=== PATIENT | male | born 1935 | race Caucasian/White ===

== ENCOUNTER 2016-03-24 20:21 | Emergency (ER) | payer MEDICARE, OTHER ==
[~2016-03-24] VITALS: Ht 177.8 cm; Wt 77.0 kg
[~2016-03-24 20:21] MED LIST: ATOR10 PO; GLUCTAB PO; LISI-360 PO; PRAD75CA PO
[2016-03-24 20:25] VITALS: BP 193/99; PULSE 68; RESP 16; TEMP 97.8; O2SAT 97
[2016-03-24 20:30] VITALS: BP 174/93; PULSE 58; RESP 18; O2SAT 96
[2016-03-24] MEDS ORDERED: TRAM50TA PO (20:39)
[2016-03-24] MEDS ORDERED: METF500T PO (20:39)
[2016-03-24] MEDS ORDERED: MULT1TAB85 PO (20:39)
[2016-03-24] MEDS ORDERED: PRAD150C PO (20:39)
[2016-03-24] MEDS ORDERED: LACTCAP8 PO (20:39)
[2016-03-24] MEDS ORDERED: FISHCAP4 PO (20:39)
[2016-03-24] MEDS ORDERED: PROP20TA3 PO (20:39)
[2016-03-24] MEDS ORDERED: LISI10TA3 PO (20:39)
[2016-03-24 20:44] VITALS: BP 166/94; PULSE 64; RESP 16; O2SAT 98
[2016-03-24] MEDS ORDERED: SODIUM CHLORIDE 0.9% FLUSH 5 ML FLUSH IVF PRN (20:45)
[2016-03-24 20:47] LABS: AUTOMATED NEUTROPHIL # 3.6 TH/MM3 (1.8-7.7); BASOPHIL # 0.1 TH/MM3 (0-0.2); BASOPHIL % 1.2 % (0.0-2.0); EOSINOPHIL # 0.2 TH/MM3 (0-0.4); HEMATOCRIT 40.7 % (39.0-51.0); HEMO FLAGS DIFF FINAL; LYMPH % 26.4 % (9.0-44.0); LYMPHOCYTE # 1.6 TH/MM3 (1.0-4.8); MEAN CELL VOLUME 89.9 FL (80.0-100.0); MEAN CORPUSCULAR HEMOGLOBIN 30.3 PG (27.0-34.0); MEAN CORPUSCULAR HGB CONC 33.7 % (32.0-36.0); NEUT % 57.4 % (16.0-70.0); PLATELET COUNT 150 TH/MM3 (150-450); RED BLOOD COUNT 4.53 MIL/MM3 (4.50-5.90); RED CELL DISTRIBUTION WIDTH 13.7 % (11.6-17.2); WHITE BLOOD COUNT 6.2 TH/MM3 (4.0-11.0)
[2016-03-24 20:55] LABS: CHLORIDE 104 MEQ/L (98-107); POTASSIUM 4.1 MEQ/L (3.5-5.1); SODIUM (NA) 143 MEQ/L (136-145)
[2016-03-24 20:59] LABS: ANION GAP 7 MEQ/L (5-15); BICARBONATE 32.5 MEQ/L (21.0-32.0); BLOOD UREA NITROGEN 15 MG/DL (7-18)
--- NOTE | 2016-03-24 20:59 | PD ---
HPI Chief Complaint: Neuro Symptoms/ Deficits Time Seen by Provider: 20:37 Travel History International Travel<30 days: No Contact w/Intl Traveler<30days: No Traveled to known affect area: No History of Present Illness HPI The patient is a 80-year-old male presents to the emergency department via private vehicle for confusion. The patient apparently was working on a crossword earlier today and approximate 7:30 PM, forgot he was working on the crossword. The patient's noticed that the patient was confused about working on a crossword puzzle and was concerned he was having a TIA. The states the patient had a history of confusion in the past with dizziness and was diagnosed with a TIA, however, states the workup was negative at that time. The patient did have an assortment of outpatient tests and was supposed to follow-up with a neurologist, however, did not ever follow-up with a neurologist. The does note that the patient's memory has been decreasing over the last several months, he occasionally will be confused about carotid Dominga thinners and simple task. The states the patient had no apparent weakness on the left or right side, had no difficulty with speech, simply had confusion about a crossword puzzle that was performed earlier in the day. The patient does have a history of intermittent atrial fibrillation for which he takes Pradaxa. PFSH Past Medical History Arthritis: Yes Atrial Fibrillation: Yes Autoimmune Disease: No Heart Rhythm Problems: Yes ( AFIB 2006) Cancer: No Cardiovascular Problems: Yes (HTN) High Cholesterol: Yes Chemotherapy: No Cerebrovascular Accident: Yes (TIA) Diabetes: Yes (METFORMIN ) Diminished Hearing: No Endocrine: Yes Genitourinary: Yes (BPH) Hypertension: Yes Immune Disorder: No Musculoskeletal: Yes Neurologic: Yes (STROKE LIKE S/S TODAY) Psychiatric: No Reproductive: No Respiratory: No Radiation Therapy: No Past Surgical History Cardiac Surgery: Yes (ABLATION) Genitourinary Surgery: Yes (TURP) Joint Replacement: Yes (RIGHT KNEE) Other Surgery: Yes (NOSE SURGERY 2008 2ND TO TRAUMA) Social History Alcohol Use: Yes (OCC) Tobacco Use: No Substance Use: No Allergies-Medications (Allergen,Severity, Reaction): Coded Allergies: Caffeine (Verified Allergy, Severe, Atrial Fibrillation, 03/24/16) Ephedrine (Verified Allergy, Severe, Atrial Fibrillation, 03/24/16) Reported Meds & Prescriptions Reported Meds & Active Scripts Active Reported Tramadol (Tramadol HCl) 50 Mg Tab 50 Mg PO Q4H PRN Multivitamin Men (Multiple Vitamins W/ Minerals) 1 Tab Tab 1 Tab PO DAILY Fish Oil + D3 (Fish Oil-Cholecalciferol) 1,200-1,000 Mg-Unit Cap 1 Cap PO DAILY Probiotic (Lactobacillus Acidophilus) 1 Cap Cap 2 Cap PO TIDAC Propranolol (Propranolol HCl) 20 Mg Tab 20 Mg PO Q12HR Pradaxa (Dabigatran) 150 Mg Cap 150 Mg PO BID Lisinopril 10 Mg Tab 10 Mg PO DAILY Metformin (Metformin HCl) 500 Mg Tab 500 Mg PO BIDPC With meals Review of Systems Except as stated in HPI: all other systems reviewed are Neg General / Constitutional: No: Fever Eyes: No: Visual changes HENT: No: Headaches, Lightheadedness Cardiovascular: No: Chest Pain or Discomfort Respiratory: No: Shortness of Breath Gastrointestinal: No: Nausea, Vomiting Musculoskeletal: No: Weakness Neurologic: Positive: Change in Mentation, No: Weakness, Dizziness, Headache, Slurred Speech, Paresthesia, Sensory Disturbance Physical Exam Narrative GENERAL: Awake, alert, pleasant 80-year-old male who appears his stated age is in no acute respiratory distress. SKIN: Warm and dry. HEAD: Atraumatic. Normocephalic. EYES: Pupils equal and round. Pupils are 3 mm bilateral and reactive. ENT: No nasal bleeding or discharge. Mucous membranes pink and moist. NECK: Trachea midline. No JVD. CARDIOVASCULAR: Regular rate and rhythm. No murmur appreciated. Heart rate in the 70s. RESPIRATORY: No accessory muscle use. Clear to auscultation. Breath sounds equal bilaterally. GASTROINTESTINAL: Abdomen soft, non-tender, nondistended. No rebound tenderness. MUSCULOSKELETAL: No obvious deformities. No clubbing. No cyanosis. No edema. NEUROLOGICAL: Awake and alert. No obvious cranial nerve deficits. Motor grossly within normal limits. Normal speech. No dysarthria noted. EOMs are intact. Patient is able to see fingers at a distance of 2 feet without difficulty. Visual kenyon are symmetric bilaterally. Sensation is symmetric bilaterally in the face, arms, and legs. No drift of the upper or lower extremities. Finger to nose is normal. Ahlr-af-thto is normal. The patient is oriented to person and place, however, did not know the current year, president of [facility], or his wedding date. The patient was able to tell me his date of . PSYCHIATRIC: Appropriate mood and affect; insight and judgment normal. Data Data Last Documented VS Vital Signs Date Time Temp Pulse Resp B/P Pulse Ox O2 Delivery O2 Flow Rate FiO2 03/24/16 21:42 55 18 174/90 96 Room Air 03/24/16 20:25 97.8 Orders Electrocardiogram (03/24/16 20:37) Complete Blood Count With Diff (03/24/16 20:37) Comprehensive Metabolic Panel (03/24/16 20:37) Creatine Kinase (Cpk) (03/24/16 20:37) Prothrombin Time / Inr (Pt) (03/24/16 20:37) Act Partial Throm Time (Ptt) (03/24/16 20:37) Troponin I (03/24/16 20:37) Thyroid Stimulating Hormone (03/24/16 20:37) Urinalysis - C+S If Indicated (03/24/16 20:37) Chest, Single Ap (03/24/16 20:37) Ct Brain W/O Iv Contrast(Rout) (03/24/16 20:37) Blood Glucose (03/24/16 20:37) Ecg Monitoring (03/24/16 20:37) Iv Access Insert/Monitor (03/24/16 20:37) Oximetry (03/24/16 20:37) Sodium Chloride 0.9% Flush (Ns Flush) (03/24/16 20:45) Alcohol (Ethanol) (03/24/16 20:37) Ondansetron Inj (Zofran Inj) (03/24/16 21:30) Aspirin (Aspirin) (03/24/16 22:15) Labs Laboratory Tests Test 03/24/16 03/24/16 20:30 21:20 White Blood Count 6.2 TH/MM3 Red Blood Count 4.53 MIL/MM3 Hemoglobin 13.7 GM/DL Hematocrit 40.7 % Mean Corpuscular Volume 89.9 FL Mean Corpuscular Hemoglobin 30.3 PG Mean Corpuscular Hemoglobin 33.7 % Concent Red Cell Distribution Width 13.7 % Platelet Count 150 TH/MM3 Mean Platelet Volume 9.3 FL Neutrophils (%) (Auto) 57.4 % Lymphocytes (%) (Auto) 26.4 % Monocytes (%) (Auto) 11.0 % Eosinophils (%) (Auto) 4.0 % Basophils (%) (Auto) 1.2 % Neutrophils # (Auto) 3.6 TH/MM3 Lymphocytes # (Auto) 1.6 TH/MM3 Monocytes # (Auto) 0.7 TH/MM3 Eosinophils # (Auto) 0.2 TH/MM3 Basophils # (Auto) 0.1 TH/MM3 CBC Comment DIFF FINAL Differential Comment Sodium Level 143 MEQ/L Potassium Level 4.1 MEQ/L Chloride Level 104 MEQ/L Carbon Dioxide Level 32.5 MEQ/L Anion Gap 7 MEQ/L Blood Urea Nitrogen 15 MG/DL Creatinine 0.99 MG/DL Estimat Glomerular Filtration 73 ML/MIN Rate Random Glucose 124 MG/DL Calcium Level 8.8 MG/DL Total Bilirubin 0.6 MG/DL Aspartate Amino Transf 13 U/L (AST/SGOT) Alanine Aminotransferase 15 U/L (ALT/SGPT) Alkaline Phosphatase 63 U/L Total Creatine Kinase 60 U/L Troponin I LESS THAN 0.02 NG/ML Total Protein 6.5 GM/DL Albumin 3.6 GM/DL Thyroid Stimulating Hormone 2.190 uIU/ML 3rd Gen Ethyl Alcohol Level LESS THAN 3 MG/DL Prothrombin Time 11.6 SEC Prothromb Time International 1.0 RATIO Ratio Activated Partial 31.0 SEC Thromboplast Time Urine Color YELLOW Urine Turbidity CLEAR Urine pH 7.5 Urine Specific [place] 1.011 Urine Protein NEG mg/dL Urine Glucose (UA) NEG mg/dL Urine Ketones NEG mg/dL Urine Occult Blood NEG Urine Nitrite NEG Urine Bilirubin NEG Urine Leukocyte Esterase NEG Urine RBC 0-2 /hpf Urine WBC 0-2 /hpf Urine Squamous Epithelial 0-5 /hpf Cells Urine Bacteria NONE /hpf Microscopic Urinalysis Comment CULT NOT INDICATED MDM Medical Decision Making Medical Screen Exam Complete: Yes Emergency Medical Condition: Yes Medical Record Reviewed: Yes Interpretation(s) EKG reveals normal sinus rhythm with a rate of 70. Nonspecific ST junctional depression. Last Impressions Head CT 03/24/162036 Signed Impressions: Service Date/Time: Thursday, March 24, 2016 21:01 - CONCLUSION: No acute disease. Neil Redmond MD Laboratory Tests Test 03/24/16 03/24/16 20:30 21:20 White Blood Count 6.2 TH/MM3 Red Blood Count 4.53 MIL/MM3 Hemoglobin 13.7 GM/DL Hematocrit 40.7 % Mean Corpuscular Volume 89.9 FL Mean Corpuscular Hemoglobin 30.3 PG Mean Corpuscular Hemoglobin 33.7 % Concent Red Cell Distribution Width 13.7 % Platelet Count 150 TH/MM3 Mean Platelet Volume 9.3 FL Neutrophils (%) (Auto) 57.4 % Lymphocytes (%) (Auto) 26.4 % Monocytes (%) (Auto) 11.0 % Eosinophils (%) (Auto) 4.0 % Basophils (%) (Auto) 1.2 % Neutrophils # (Auto) 3.6 TH/MM3 Lymphocytes # (Auto) 1.6 TH/MM3 Monocytes # (Auto) 0.7 TH/MM3 Eosinophils # (Auto) 0.2 TH/MM3 Basophils # (Auto) 0.1 TH/MM3 CBC Comment DIFF FINAL Differential Comment Sodium Level 143 MEQ/L Potassium Level 4.1 MEQ/L Chloride Level 104 MEQ/L Carbon Dioxide Level 32.5 MEQ/L Anion Gap 7 MEQ/L Blood Urea Nitrogen 15 MG/DL Creatinine 0.99 MG/DL Estimat Glomerular Filtration 73 ML/MIN Rate Random Glucose 124 MG/DL Calcium Level 8.8 MG/DL Total Bilirubin 0.6 MG/DL Aspartate Amino Transf 13 U/L (AST/SGOT) Alanine Aminotransferase 15 U/L (ALT/SGPT) Alkaline Phosphatase 63 U/L Total Creatine Kinase 60 U/L Troponin I LESS THAN 0.02 NG/ML Total Protein 6.5 GM/DL Albumin 3.6 GM/DL Thyroid Stimulating Hormone 2.190 uIU/ML 3rd Gen Ethyl Alcohol Level LESS THAN 3 MG/DL Prothrombin Time 11.6 SEC Prothromb Time International 1.0 RATIO Ratio Activated Partial 31.0 SEC Thromboplast Time Urine Color YELLOW Urine Turbidity CLEAR Urine pH 7.5 Urine Specific [place] 1.011 Urine Protein NEG mg/dL Urine Glucose (UA) NEG mg/dL Urine Ketones NEG mg/dL Urine Occult Blood NEG Urine Nitrite NEG Urine Bilirubin NEG Urine Leukocyte Esterase NEG Urine RBC 0-2 /hpf Urine WBC 0-2 /hpf Urine Squamous Epithelial 0-5 /hpf Cells Urine Bacteria NONE /hpf Microscopic Urinalysis Comment CULT NOT INDICATED Chest x-rays unremarkable. Differential Diagnosis Differential diagnosis includes TIA, CVA, subdural hemorrhage, delirium, dementia, hyponatremia, UTI, pneumonia, metabolic encephalopathy. Narrative Course IV was established, labs were drawn and sent, and the patient was placed on cardiac telemetry monitoring and continuous pulse oximetry monitoring. EKG was ordered and interpreted. The patient's stroke scale was 0, therefore, no stroke scale was called. The patient appears to have short term memory problems , which appear to been going on for several months according to the . CT the brain was ordered to rule out subdural hemorrhage. TSH was sent to lab. TSH was normal. CT of the brain was negative. Chest x-rays unremarkable. UA is negative. Sodium is normal. No obvious course of patient's delirium. The patient appears to have dementia with progressing symptoms. I reviewed the patient's EMR from 2014 red MRA, MRI, ultrasound of carotids, and CT the brain performed. The patient was evaluated by the neurologist at that time, Dr. Brooks, however, did not follow-up as an outpatient according to the . The patient most likely has acute delirium on top of dementia with progressing symptoms, he may benefit from outpatient follow-up with neurology. The is comfortable with this plan of care and disposition. I advised patient not to drive or go places without a family member present and not to cocaine at home alone. Diagnosis Primary Impression: Delirium Additional Impression: Dementia Qualified Code: F03.90 - Dementia without behavioral disturbance, unspecified dementia type Referrals: Angus Brooks MD call for appointment Patient Instructions: General Instructions Additional Instructions: Follow-up with neurology, Dr. Brooks on an outpatient basis. Please provide the patient a copy of the CT results and lab results at discharge. Return if symptoms worsen or progress. Med/Other Pt SpecificInfo: No Change to Meds Disposition: 01 DISCHARGE HOME Condition: Stable Sunil Becerra MD Mar 24, 2016 20:59
[2016-03-24 21:02] LABS: ALT (GPT) 15 U/L (12-78); AST (GOT) 13 U/L (15-37); GLOMERULAR FILTRATION RATE 73 ML/MIN (>89)
[2016-03-24 21:03] LABS: TOTAL BILIRUBIN ADULT 0.6 MG/DL (0.2-1.0)
[2016-03-24 21:05] LABS: ALKALINE PHOSPHATASE 63 U/L (45-117); CREATINE KINASE 60 U/L (39-308)
--- NOTE | 2016-03-24 21:08 | RADHPO ---
EXAM DATE/TIME: 03/24/2016 20:53 [facility] COMPARISON: CHEST SINGLE AP, October 06, 2014, 16:28. INDICATIONS : Syncopal episode today. Possible TIA. MEDICAL HISTORY : Hypertension. Hypercholesterolemia. TIA SURGICAL HISTORY : Ablation. ENCOUNTER: Initial ACUITY: 1 day PAIN SCORE: Non-responsive. LOCATION: Bilateral chest FINDINGS: The heart is normal. There is some widening of the aorta. The lungs are grossly clear. No effusion is seen. The bony structures are grossly intact. CONCLUSION: No acute abnormality is seen. Neil Redmond MD on March 24, 2016 at 21:05 Board Certified Radiologist. This report was verified electronically.
[2016-03-24] MEDS ORDERED: ONDANSETRON HCL 4 MG/2 ML VIAL IV PUSH ONE (21:30)
[2016-03-24 21:35] LABS: BLOOD, URINE NEG (NEG); GLUCOSE,URINE NEG (NEG); KETONE, URINE NEG (NEG); NITRITE,URINE NEG (NEG); PH, URINE 7.5 (5.0-8.5)
--- NOTE | 2016-03-24 21:37 | RADHPO ---
EXAM DATE/TIME: 03/24/2016 21:01 [facility] COMPARISON: CT BRAIN W/O CONTRAST, October 06, 2014, 16:25. INDICATIONS : Altered mental status. RADIATION DOSE: 54.72 CTDIvol (mGy) MEDICAL HISTORY : Cardiovascular disease. Cerebrovascular disease. Diabetes mellitus type 2. SURGICAL HISTORY : None. ENCOUNTER: Initial ACUITY: 1 day PAIN SCALE: 4/10 LOCATION: cranial TECHNIQUE: Multiple contiguous axial images were obtained of the head. Using automated exposure control and adj ustment of the mA and/or kV according to patient size, radiation dose was kept as low as reasonably a chievable to obtain optimal diagnostic quality images. FINDINGS: CEREBRUM: The ventricles are normal for age. No evidence of midline shift, mass lesion, hemorrhage or acute in farction. No extra-axial fluid collections are seen. POSTERIOR FOSSA: The cerebellum and brainstem are intact. The 4th ventricle is midline. The cerebellopontine angle i s unremarkable. EXTRACRANIAL: The visualized portion of the orbits is intact. SKULL: The calvaria is intact. No evidence of skull fracture. CONCLUSION: No acute disease. Neil Redmond MD on March 24, 2016 at 21:34 Board Certified Radiologist. This report was verified electronically.
[2016-03-24 21:38] LABS: URINE COLOR YELLOW (YELLW/STRAW)
[2016-03-24 21:39] LABS: RBC, URINE 0-2 /hpf (0-3); SQUAMOUS EPITHELIAL CELL URINE 0-5 /hpf (0-5); WBC, URINE 0-2 /hpf (0-5)
[2016-03-24 21:40] LABS: COMMENT (UR) CULT NOT INDICATED; CULTURE IF INDICATED CULT NOT INDICATED
[2016-03-24 21:42] VITALS: BP 174/90; PULSE 55; RESP 18; O2SAT 96
[2016-03-24 21:53] LABS: PROTHROMBIN TIME - PATIENT 11.6 SEC (9.8-11.6)
[2016-03-24] MEDS ORDERED: ASPIRIN 325 MG TAB PO ONE (22:15)
[2016-03-24 22:37] VITALS: BP 172/92; PULSE 54; RESP 18; O2SAT 96
--- NOTE | 2016-03-25 09:26 | EKG ---
Date Performed: 03/24/2016 Time Performed: 20:28:36 PTAGE: 80 years EKG: Sinus rhythm . ST junctional depression is nonspecific Borderline ECG PREVIOUS TRACING : 10/06/2014 16.00 Compared to prior tracing no significant change DOCTOR: Gerald Blue Interpretating Date/Time 03/25/2016 09:24:05
== END 2016-03-24 22:59 | disposition home or self-care (01) ==
LOC: PHED 20:21
DX: R41.0 Disorientation, unspecified (principal); F03.90 Unspecified dementia, unspecified severity, without behavioral disturbance, psychotic disturbance, mood disturbance, and anxiety; R94.31 Abnormal electrocardiogram [ECG] [EKG]; I48.91 Unspecified atrial fibrillation; E11.9 Type 2 diabetes mellitus without complications; I10 Essential (primary) hypertension; E78.00 Pure hypercholesterolemia, unspecified; Z79.01 Long term (current) use of anticoagulants; Z79.84 Long term (current) use of oral hypoglycemic drugs; Z87.39 Personal history of other diseases of the musculoskeletal system and connective tissue; Z86.79 Personal history of other diseases of the circulatory system; Z86.73 Personal history of transient ischemic attack (TIA), and cerebral infarction without residual deficits; Z87.448 Personal history of other diseases of urinary system; Z86.69 Personal history of other diseases of the nervous system and sense organs
CPT/HCPCS: 70450; 71010; 80053; 80320; 81001; 82550; 84443; 84484; 85025; 85610; 85730; 93005; 96374; 99285; J2405